=== PATIENT | female | born 1960 | race Caucasian/White ===

== ENCOUNTER 2016-12-22 14:44 | Emergency (ER) | payer OTHER ==
[~2016-12-22] VITALS: Ht 162.6 cm; Wt 64.5 kg
[~2016-12-22 14:44] MED LIST: BP meds PO; TRAM50TA PO
[2016-12-22 14:55] VITALS: BP 133/62; PULSE 52; RESP 16; TEMP 98; O2SAT 100
--- NOTE | 2016-12-22 15:14 | PD ---
HPI Chief Complaint: Injury Time Seen by Provider: 15:03 Travel History International Travel<30 days: No Contact w/Intl Traveler<30days: No Traveled to known affect area: No History of Present Illness HPI 56-year-old female complains of right wrist pain. Patient states that she fell today. Patient denies loss of consciousness. Patient denies any headache or neck pain. Patient denies any chest pain or shortness of breath. Patient denies abdominal pain for back pain. Patient states the pain is severe pain localized to the right wrist area. Patient denies any pain radiation. EMS was called. Patient was given morphine 4 mg IV prior to arrival. Patient has history hypertension. PFSH Past Medical History Hx Anticoagulant Therapy: No Depression: Yes Cardiovascular Problems: Yes (HTN) Chemotherapy: No Cerebrovascular Accident: No Diabetes: No Diminished Hearing: No Hypertension: Yes Respiratory: No Immunizations Current: No ?: Not Past Surgical History Hysterectomy: No Social History Alcohol Use: No Tobacco Use: No Substance Use: No Allergies-Medications (Allergen,Severity, Reaction): Coded Allergies: No Known Allergies (Unverified , 12/22/16) Reported Meds & Prescriptions Reported Meds & Active Scripts Active Reported [BP meds ] 1 Tab PO DAILY Tramadol Hcl (Tramadol HCl) 50 Mg Tab 50 Mg PO DAILY Review of Systems General / Constitutional: No: Fever Eyes: No: Visual changes HENT: No: Headaches Cardiovascular: No: Chest Pain or Discomfort Respiratory: No: Shortness of Breath Gastrointestinal: No: Abdominal Pain Genitourinary: No: Dysuria Musculoskeletal: Positive: Pain Skin: No Rash Neurologic: No: Weakness Psychiatric: No: Depression Endocrine: No: Polydipsia Hematologic/Lymphatic: No: Easy Bruising Physical Exam Narrative GENERAL: Well-nourished, well-developed patient. SKIN: Focused skin assessment warm/dry. HEAD: Normocephalic. EYES: No scleral icterus. No injection or drainage. NECK: Supple, trachea midline. No JVD or lymphadenopathy. CARDIOVASCULAR: Regular rate and rhythm without murmurs, gallops, or rubs. RESPIRATORY: Breath sounds equal bilaterally. No accessory muscle use. GASTROINTESTINAL: Abdomen soft, non-tender, nondistended. MUSCULOSKELETAL: No cyanosis, or edema. BACK: Nontender without obvious deformity. No CVA tenderness. Examination of the right wrist shows obvious deformity of the distal radius and ulnar with angulation dorsally. Limited range of motion of the fingers. Good capillary refill. Data Data Last Documented VS Vital Signs Date Time Temp Pulse Resp B/P (MAP) Pulse Ox O2 Delivery O2 Flow Rate FiO2 12/22/16 14:55 98.0 52 16 133/62 (85) 100 Orders Orders Wrist, Limited (Ap&Lat) (12/22/16 15:07) Complete Blood Count With Diff (12/22/16 15:07) Basic Metabolic Panel (Bmp) (12/22/16 15:07) Prothrombin Time / Inr (Pt) (12/22/16 15:07) Act Partial Throm Time (Ptt) (12/22/16 15:07) Iv Access Insert/Monitor (12/22/16 15:07) Ecg Monitoring (12/22/16 15:07) Oximetry (12/22/16 15:07) Hydromorphone Pf Inj (Dilaudid Pf Inj) (12/22/16 15:15) Hydromorphone Pf Inj (Dilaudid Pf Inj) (12/22/16 15:30) Morphine Inj (Morphine Inj) (12/22/16 15:30) Ondansetron Inj (Zofran Inj) (12/22/16 16:30) Propranolol Inj (Inderal Inj) (12/22/16 17:00) Sodium Chlor 0.9% 1000 Ml Inj (Ns 1000 M (12/22/16 17:00) Wrist, Limited (Ap&Lat) (12/22/16 ) Propofol 500 Mg/50 Ml Inj (Diprivan 500 (12/22/16 17:15) Consult Hand Surgery (12/22/16 ) (Hub Use Only)Inp Phy Cons/Ref (12/22/16 ) Labs Laboratory Tests Test 12/22/16 16:20 White Blood Count 11.0 TH/MM3 Red Blood Count 4.34 MIL/MM3 Hemoglobin 11.8 GM/DL Hematocrit 36.0 % Mean Corpuscular Volume 83.0 FL Mean Corpuscular Hemoglobin 27.1 PG Mean Corpuscular Hemoglobin Concent 32.6 % Red Cell Distribution Width 14.3 % Platelet Count 225 TH/MM3 Mean Platelet Volume 7.5 FL Neutrophils (%) (Auto) 79.6 % Lymphocytes (%) (Auto) 12.3 % Monocytes (%) (Auto) 5.9 % Eosinophils (%) (Auto) 1.8 % Basophils (%) (Auto) 0.4 % Neutrophils # (Auto) 8.7 TH/MM3 Lymphocytes # (Auto) 1.4 TH/MM3 Monocytes # (Auto) 0.7 TH/MM3 Eosinophils # (Auto) 0.2 TH/MM3 Basophils # (Auto) 0.0 TH/MM3 CBC Comment DIFF FINAL Differential Comment Prothrombin Time 10.6 SEC Prothromb Time International Ratio 1.0 RATIO Activated Partial Thromboplast Time 23.8 SEC Blood Urea Nitrogen 17 MG/DL Creatinine 1.02 MG/DL Random Glucose 98 MG/DL Calcium Level 8.6 MG/DL Sodium Level 141 MEQ/L Potassium Level 3.5 MEQ/L Chloride Level 108 MEQ/L Carbon Dioxide Level 25.5 MEQ/L Anion Gap 8 MEQ/L Estimat Glomerular Filtration Rate 56 ML/MIN MDM Medical Decision Making Medical Screen Exam Complete: Yes Emergency Medical Condition: Yes Interpretation(s) Last Impressions Wrist X-Ray 12/22/16 1507 Signed Impressions: Service Date/Time: Thursday, December 22, 2016 15:35 - CONCLUSION: Distal radial fracture. Gilles Whaley MD Differential Diagnosis Differential diagnosis including fracture, dislocation. Narrative Course 56-year-old female with injury right wrist. Obvious deformity. Morphine 2 mg IV. Dilaudid 0.5 mg IV. Zofran 4 mg IV. Procedures Procedure Narrative Conscious sedation procedure: Patient was connected to cardiac monitor technician and pulse oximeter monitor. O2 2 L nasal cannula given. IV fluid established. Normal saline solution 1 25 cc an hour. Consent obtained. Patient was given propofol 30 mg 2. Patient was well sedated. Reduction of fracture distal radius with displacement done. Sugar tong splint applied. Postreduction film obtained. Reduction procedure done by surgeon Dr. Louis. Diagnosis Primary Impression: Fracture of right wrist Qualified Codes: S62.101A - Fracture of unspecified carpal bone, right wrist, initial encounter for closed fracture Patient Instructions: General Instructions Med/Other Pt SpecificInfo: Prescription(s) given Scripts Hydrocodone-Acetaminophen ([place]) 5-325 mg Tab 1 TAB PO Q6H Y for PAIN, #30 TAB 0 Refills Prov: Ermias Marinelli MD 12/22/16 Disposition: 01 DISCHARGE HOME Condition: Stable Ermias Marinelli MD Dec 22, 2016 15:14
[2016-12-22] MEDS ORDERED: HYDROmorphone HCL PF 0.5 MG/0.5 ML SYRINGE IV PUSH ONE (15:15)
[2016-12-22] MEDS ORDERED: HYDROmorphone HCL PF 1 MG/ML VIAL IV PUSH ONE (15:30)
[2016-12-22] MEDS ORDERED: MORPHINE SULFATE 4 MG/ML INJ IV PUSH ONE (15:30)
--- NOTE | 2016-12-22 16:22 | RADRPT ---
EXAM DATE/TIME: 12/22/2016 15:35 [facility] COMPARISON: No previous studies available for comparison. INDICATIONS : Right wrist pain after falling. MEDICAL HISTORY : None. SURGICAL HISTORY : None. ENCOUNTER: Initial ACUITY: 1 day PAIN SCORE: 10/10 LOCATION: Right wrist FINDINGS: AP and lateral views of the right wrist were obtained and demonstrate an impacted comminuted fracture of the distal radius. The distal fracture fragment is displaced dorsally one shaft width with mild o verriding and dorsal angulation. The distal ulna is intact. The carpus is intact as well. There is ov erlying soft tissue swelling. CONCLUSION: Distal radial fracture. Gilles Whaley MD on December 22, 2016 at 16:19 Board Certified Radiologist. This report was verified electronically.
[2016-12-22] MEDS ORDERED: ONDANSETRON HCL 4 MG/2 ML VIAL IV PUSH ONE (16:30)
[2016-12-22 16:51] LABS: AUTOMATED NEUTROPHIL # 8.7 TH/MM3 (1.8-7.7); BASOPHIL % 0.4 % (0.0-2.0); EOSINOPHIL # 0.2 TH/MM3 (0-0.4); EOSINOPHIL % 1.8 % (0.0-4.0); HEMO FLAGS DIFF FINAL; LYMPH % 12.3 % (9.0-44.0); LYMPHOCYTE # 1.4 TH/MM3 (1.0-4.8); MEAN CORPUSCULAR HEMOGLOBIN 27.1 PG (27.0-34.0); MEAN CORPUSCULAR HGB CONC 32.6 % (32.0-36.0); MONO % 5.9 % (0.0-8.0); NEUT % 79.6 % (16.0-70.0); PLATELET COUNT 225 TH/MM3 (150-450); RED BLOOD COUNT 4.34 MIL/MM3 (4.00-5.30); RED CELL DISTRIBUTION WIDTH 14.3 % (11.6-17.2)
[2016-12-22 16:57] LABS: APTT (PATIENT) 23.8 SEC (24.3-30.1); PROTHROMBIN TIME - PATIENT 10.6 SEC (9.8-11.6)
[2016-12-22] MEDS ORDERED: PROPRANOLOL INJ 1 MG/ML AMP IV PUSH ONE (17:00)
[2016-12-22] MEDS ORDERED: SODIUM CHLOR 0.9% 1000 ML INJ 1,000 ML IV SCH (17:00)
[2016-12-22 17:10] LABS: BICARBONATE 25.5 MEQ/L (21.0-32.0); POTASSIUM 3.5 MEQ/L (3.5-5.1)
[2016-12-22 17:15] VITALS: O2SAT 99
[2016-12-22] MEDS ORDERED: PROPOFOL 500 MG/50 ML BTL IV ONE (17:15)
--- NOTE | 2016-12-22 17:36 | RADRPT ---
EXAM DATE/TIME: 12/22/2016 17:08 [facility] COMPARISON: WRIST RIGHT LIMITED(AP & LAT), December 22, 2016, 15:35. INDICATIONS : Right wrist post reduction. MEDICAL HISTORY : None. SURGICAL HISTORY : None. ENCOUNTER: Subsequent ACUITY: 1 day PAIN SCORE: Non-responsive. LOCATION: Right wrist FINDINGS: AP and lateral views of the right wrist were obtained and again demonstrate the comminuted fracture o f the distal radius. The previously noted dorsal displacement of the distal fracture fragment has bee n reduced. The alignment is now near-anatomic. The carpus and distal ulna remain intact. There is ove rlying soft tissue swelling. CONCLUSION: Post reduction exam. Gilles Whaley MD on December 22, 2016 at 17:33 Board Certified Radiologist. This report was verified electronically.
[2016-12-22] MEDS ORDERED: NORC5TAB PO (17:43)
[2016-12-22 17:55] VITALS: RESP 16
--- NOTE | 2016-12-23 12:10 | MB ---
cc: JOSH EMERY DATE OF CONSULTATION: 12/23/2016. REASON FOR CONSULTATION: Closed displaced right distal radius fracture. 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 She denies any prior injuries to the right wrist. She denies any prior history of carpal tunnel to the right wrist. She reports pain and mild paresthesias over the median nerve distribution as well as the ulnar nerve distribution on the right. PAST MEDICAL HISTORY: Hypertension. PAST SURGICAL HISTORY: Denies. SOCIAL HISTORY: The patient is a nurse at [employer]. Denies any significant alcohol, tobacco or drug use. ALLERGIES: NO KNOWN DRUG ALLERGIES. MEDICATIONS: Tramadol. PHYSICAL EXAMINATION: GENERAL: The patient is alert and oriented. Exam of the right wrist shows no lacerations. There is significant deformity of the right wrist. There is moderate swelling over the right forearm. Compartments are soft and compressive. 2+ radial pulse. Sensation decreased in the median and ulnar distribution and intact in the radial distribution. Good range of motion of the fingers. No pain over the elbow. IMAGING STUDIES: X-rays of the right wrist were ordered, performed and reviewed and show a significantly closed displaced fracture of the right distal radius. 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 Treatment options were discussed with the patient. She elected to proceed with closed reduction for a temporary treatment and evaluation for carpal tunnel syndrome, possible surgical intervention including carpal tunnel release, Guyon's release, open reduction internal fixation of the right distal radius fracture. She understands she is at risk for pain, paresthesias, stiffness and understands she will be off work for likely two to three months or at least light duty. The patient elected to proceed. I will continue to monitor after the closed reduction. MD JEFE Stiles/DORITA /6:06 PM /11:58 AM [facility]
--- NOTE | 2016-12-24 07:41 | MP ---
cc: CARLINE LOUIS DATE OF SURGERY 12/22/2016 PREOPERATIVE DIAGNOSIS Closed displaced fracture right distal radius. POSTOPERATIVE DIAGNOSIS Closed displaced fracture right distal radius. PROCEDURE Closed reduction and splinting right distal radius. SURGEON Dr. 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 She elected to proceed with closed reduction of this either a permanent or a temporary treatment. Informed consent was obtained. Conscious sedation was performed by the emergency room physician. A combination of traction and manipulation was performed to perform the closed reduction of the significantly displaced fracture. AP and lateral x-rays confirmed near anatomic alignment of the fracture. A well-padded sugar-tong splint was placed. I will monitor the patient's sensation following the procedure. She may require surgical intervention including carpal tunnel release, guyons canal release, and possible open reduction internal fixation and the patient is aware. She shall remain off work at this time. She understands she is at risk for nonunion, malunion, carpal tunnel syndrome and she elects to proceed. MD JEFE Stiles/ANTONY /6:09 PM /7:35 AM [facility]
[2017-01-01] MEDS ORDERED: METO50TA11 PO (07:40)
[2017-01-01] MEDS ORDERED: TRAM50TA PO (07:40)
== END 2016-12-22 18:49 | disposition home or self-care (01) ==
LOC: NEPD 14:44
DX: S62.101A Fracture of unspecified carpal bone, right wrist, initial encounter for closed fracture (principal); I10 Essential (primary) hypertension; F32.9 Major depressive disorder, single episode, unspecified; Z79.899 Other long term (current) drug therapy; W19.XXXA Unspecified fall, initial encounter; Y92.009 Unspecified place in unspecified non-institutional (private) residence as the place of occurrence of the external cause
CPT/HCPCS: 25605; 73100; 80048; 85025; 85610; 85730; 96374; 96375; 99285; J1170; J2270; J2405; J7030; 29125

== ENCOUNTER → 2017-01-01 | Day surgery (SDC) | payer OTHER ==
[~2017-01-01] VITALS: Ht 162.6 cm; Wt 64.4 kg
[~2017-01-01] MED LIST changes: +*morphine SULFATE 8 MG/ML PERIprocedure ONLY ONE; +ACETAMINOPHEN 1000 MG/100 ML 100 ML IV ONE; +BACITRACIN TOP OINT 15 GM TUBE ONE; +BUPIVACAINE HCL PF 0.5% 30 ML VIAL ONE; +CHLORHEXIDINE GLUCONATE 2 % 1 PACK (2 CLOTHS) TOPICAL PRN; +DO NOT ADM ANY ANTICOAGULANT DRUGS PRN; +FAMOTIDINE 20 MG/2 ML VIAL ONE; +HYDROmorphone HCL PF 1 MG/ML VIAL IV PRN; +INSULIN HUMAN REGULAR 1,000 UNITS/10 ML VIAL SQ PRN; +LACTATED RINGER'S 1000 ML INJ 1,000 ML IV ONE; +LACTATED RINGER'S 1000 ML IV PRN; +LIDOCAINE HCL 1% 50 ML VIAL ONE; +LIDOCAINE HCL 1% PF 5 ML AMPULE OTHER ONE; +LIDOCAINE HCL 2% 50 ML VIAL ONE; +METO50TA11 PO; +METOPROLOL TARTRATE 25 MG TAB PO PRN; +MIDAZOLAM HCL 2 MG/2 ML VIAL ONE; +NORC5TAB PO; +ONDANSETRON HCL 4 MG/2 ML VIAL IV PUSH ONE; +ONDANSETRON HCL 4 MG/2 ML VIAL IV PUSH PRN; +POVIDONE IODINE 5% (ANTISEPSIS KIT) 4 APPLICATIONS EACH NARE PRN; +PROPOFOL 200 MG/20 ML AMP IV ONE; +SODIUM CHLORID 0.9% 500 ML IV PRN; +TRIAMCINOLONE ACETONIDE 40 MG/ML VIAL ONE; +ceFAZolin INJ 1,000 MG VIAL IV ONE; +ePHEDrine/NS 25 MG/5 ML SYR IV ONE
[2017-01-01] MEDS: ceFAZolin 2 GM PREMIX 50 ML IV SCH ×2 (07:58→13:51)
--- NOTE | 2017-01-01 14:11 | RADRPT ---
EXAM DATE/TIME: 01/01/2017 09:17 [facility] COMPARISON: No previous studies available for comparison. INDICATIONS : ORIF of the right wrist. MEDICAL HISTORY : Hypertension. SURGICAL HISTORY : None. ENCOUNTER: Initial ACUITY: 1 day PAIN SCORE: Non-responsive. LOCATION: Right wrist. CONCLUSION: Fluoroscopic images during placement of T-shaped compression plate distal radius fixating fracture. Nilson Morales MD on January 01, 2017 at 14:08 Board Certified Radiologist. This report was verified electronically.
--- NOTE | 2017-01-01 16:25 | EKG ---
Date Performed: 01/01/2017 Time Performed: 08:21:45 PTAGE: 56 years EKG: SINUS BRADYCARDIA BORDERLINE ECG NO PREVIOUS TRACING DOCTOR: Arlene Griffith Interpretating Date/Time 01/01/2017 16:24:29
[2017-01-01 16:30] VITALS: BP 186/86; PULSE 59; RESP 18; O2SAT 100
--- NOTE | 2017-01-01 19:39 | MP ---
cc: JOSH LOUIS DATE OF SURGERY 01/01/17 PREOPERATIVE DIAGNOSIS 1. Closed displaced fracture right distal radius 2. Right ulnar nerve compression at the wrist. POSTOPERATIVE DIAGNOSIS 1. Closed displaced fracture right distal radius 2. Right ulnar nerve compression at the wrist. PROCEDURE 1. Open reduction internal fixation extra-articular right distal radius fracture. 2. Right carpal tunnel release. 3. Right Guyon's canal release. 4. Application of allograft bone graft, right wrist. SURGEON Dr. Johnny Louis ANESTHESIA General and local TOURNIQUET TIME Initially 123 minutes at 250 mmHg. Tourniquet was released for an hour and then reinflated for 29 minutes for closure. IMPLANTS 1. Synthes standard right distal radius plate with locking and nonlocking screws. 2. 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 She was seen in the emergency room where I performed closed reduction of the wrist due to significant displacement and swelling. At that time, the patient did have paresthesias in the ulnar nerve distribution but no significant paresthesias in the median nerve distribution. She was discharged home and I have been following her in the office. Surgery was delayed to allow for reduction of swelling as again the patient had swelling of the forearm. The patient elected to proceed with surgical intervention. Risks were explained which are not limited to wound complications, infection, nonunion, malunion, need for removal of the hardware, persistent paresthesias, stiffness and pain and she elected to proceed. PROCEDURE IN DETAIL The patient was identified in the preoperative holding area and the correct extremity was marked. The patient was taken to the operating room where anesthesia was induced. The right upper extremity was prepped and draped in normal sterile fashion. X-rays confirmed dorsal displacement of the fracture. Tourniquet was inflated to 250 mmHg for initially again 123 minutes. Attention was first turned to the carpal tunnel and Guyon's canal. Carpal tunnel release was performed with care to decompress the median nerve and protect the ulnar nerve, ulnar artery, palmar arch. Attention was then turned to Guyon's canal where the ulnar nerve was released at the wrist. There was some hematoma in this area. Attention was then turned to the distal radius. A volar incision was made in line with the flexor carpi radialis. Care was taken to protect the radial artery as well as median nerve. The flexor pollicis longus was protected. An incision was made in the pronator quadratus and the fracture was identified. There was significant dorsal displacement with a significant amount of bone fragments dorsally which were removed for later bone grafting. Then the fracture was reduced and temporarily pinned with a K-wire. Then a standard Synthes plate as well as a volar rim plate were sized. The standard plate fit better to the patient's anatomy as the volar rim plate was significantly large and would have to be placed very distal with concern for need for later removal. Initially, a nonlocking screw was placed in the shaft and then the position of the plate was adjusted on the x-rays. Then a nonlocking screw was placed distally to reduce the plate to the distal fragment. Then locking screws were placed to hold the reduction of the fracture. Then the distal nonlocking screw was replaced with a locking screw. AP and lateral x-rays showed significant improvement in alignment on both the AP and lateral planes. Intraoperatively, the fracture appeared stable with gentle stress testing. A mixture of the bone fragments as well as DBX was mixed and placed into the significant area of dorsal bone loss. The tourniquet was released. Hemostasis was obtained. The superficial and deep compartments of the wrist were released as again there was hematoma on the ulnar side of the wrist. While performing this, it was noted there was rupture of the muscle belly of the flexor digitorum superficialis to the small finger. The flexor digitorum profundus remained intact. I looked for a proximal end, but there was only muscle belly, no evidence of rupture at the tendon level. This appeared to have occurred at the time of the fracture due to the frayed end of the muscle. Initially I attempted to gently repair the muscle belly to the tendon but this caused significant flexion of the small fingers so decision was made to leave the muscle and allow the patient to fire the small finger using the FDP. The patient did have moderate swelling over the forearm. The tourniquet was reinflated for closure. The wound was closed with Monocryl and nylon. The tourniquet was then released. The patient had 2+ radial pulse and good capillary refill to all of her fingers. The patient was placed into a short-arm splint and awoken from anesthesia without any complications. Approximately 20 mL of 2% lidocaine with no epinephrine was used for local anesthesia over the area. The patient was seen in the recovery room and had good range of motion of all the fingers including the small finger. She did have decreased sensation in the median and ulnar distribution, likely due to a combination of the local and the prior paresthesias. She was instructed on the importance of elevating the wrist and hand and calling over the weekend with any concerns as I am plant operations coordinator. Otherwise, I will see her in approximately 1-2 weeks in the office. 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 MD JEFE Stiles/ /4:25 PM /7:16 PM [facility]
== END | disposition home or self-care (01) ==
LOC: HSDC 07:05
PROVIDERS: ATTEND Orthopaedic Surgery
DX: S52.551A Other extraarticular fracture of lower end of right radius, initial encounter for closed fracture (principal); W18.30XA Fall on same level, unspecified, initial encounter; Y92.019 Unspecified place in single-family (private) house as the place of occurrence of the external cause; G56.21 Lesion of ulnar nerve, right upper limb; G56.01 Carpal tunnel syndrome, right upper limb; I10 Essential (primary) hypertension; Z79.899 Other long term (current) drug therapy
CPT/HCPCS: 01830; 25425; 25607; 64719; 64721; 73100; 76000; 93005; C1713; J0131; J0690; J2250; J2270; J2405; J3010; J7120; J3301